=== PATIENT | female | born 2000 | race Caucasian/White ===

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

== ENCOUNTER → 2020-03-13 | Outpatient (REF) | payer OTHER ==
[~2020-03-13] MED LIST changes: +MAGICMW SSP
[2020-03-13 21:53] LABS: APPEARANCE, URINE HAZY (CLEAR); BACTERIA, URINE AUTO NEGATIVE (NEGATIVE); BILIRUBIN, URINE AUTO NEGATIVE (NEGATIVE); BLOOD, URINE BLOOD NEGATIVE (NEGATIVE); COLOR, URINE RED (YELLOW); GLUCOSE, URINE (UA) AUTO 1+ mg/dL (NEGATIVE); KETONE, URINE AUTO NEGATIVE (NEGATIVE); LEUKOCYTE ESTERASE, URINE AUTO NEGATIVE (NEGATIVE); MUCUS, URINE MODERATE (NEGATIVE); NITRITE, URINE AUTO POSITIVE (NEGATIVE); PROTEIN, URINE AUTO NEGATIVE (NEGATIVE); RBC, URINE AUTO 2 /HPF (0-3); SPECIFIC GRAVITY URINE AUTO 1.026 (1.002-1.035); SQUAMOUS EPITHELIAL CELL UR AU 22 /HPF (0-6); WBC, URINE AUTO 26 /HPF (0-3)
== END ==
LOC: M LAB REF 21:14
PROVIDERS: ATTEND Physician Assistant Medical
DX: R30.0 Dysuria (principal)

== ENCOUNTER → 2020-08-14 | Outpatient (REF) | payer OTHER ==
[2020-08-14 18:07] LABS: HCG, SERUM QUALITATIVE NEGATIVE (NEGATIVE)
[2020-08-14 18:11] LABS: HCG, SERUM QUANTITATIVE < 1.0 MIU/ML
== END ==
LOC: M LAB REF 16:47
PROVIDERS: ATTEND Physician Assistant Medical
DX: Z32.00 Encounter for pregnancy test, result unknown (principal)

== ENCOUNTER 2020-11-18 10:40 | Emergency (ER) | payer OTHER ==
[~2020-11-18] VITALS: Ht 175.3 cm; Wt 77.6 kg
[2020-11-18] MEDS ORDERED: MULTTAB20 PO (10:47)
[2020-11-18 11:38] LABS: BASO % 0.4 % (0.0-1.0); EOS # 0.1 10^3/uL (0.0-0.5); EOS % 0.8 % (0.0-3.0); HEMATOCRIT 40.5 % (36.0-47.0); LYMPH # 1.6 10^3/uL (1.5-5.0); LYMPH % 15.8 % (24.0-44.0); MEAN CORPUSCULAR HEMOGLOBIN 28.3 pg (27.0-33.0); MEAN CORPUSCULAR HGB CONC 32.1 g/dl (32.0-36.5); MONO # 0.9 10^3/uL (0.0-0.8); MONO % 9.1 % (0.0-5.0); NEUTROPHILS # 7.4 10^3/uL (1.5-8.5); NEUTROPHILS % 73.6 % (36.0-66.0); PLATELET COUNT, AUTOMATED 290 10^3/uL (150-450)
--- NOTE | 2020-11-18 12:03 | REP ---
INDICATION: vaginal bleeding, first trimester COMPARISON: None. TECHNIQUE: Transabdominal and transvaginal 1st trimester obstetrical ultrasound with color Doppler evaluation. FINDINGS: Anteverted uterus measures 8.0 x 4.1 x 5.1 cm. No intrauterine identified. Bilateral ovaries are normal in appearance and vascularity. Right ovary measures 2.7 x 1.2 x 1.4 cm (RI 0.59). Left ovary measures 2.7 x 1.9 x 1.9 cm (RI 0.45). No pelvic fluid or adnexal mass lesion. IMPRESSION: Normal uterus and ovaries. No intrauterine identified. Correlation with serial HCG levels recommended. Differential diagnosis includes recent spontaneous and early , and much less likely ectopic cannot be excluded. <Electronically signed by Ramin Escobar > 11/18/20 [id number]
[2020-11-18 12:47] VITALS: BP 135/83
[2020-11-18 14:12] LABS: CHLAMYDIA DNA AMPLIFICATION NEGATIVE (NEGATIVE); GC DNA AMPLIFICATION NEGATIVE (NEGATIVE)
== END 2020-11-18 12:48 | disposition home or self-care (01) ==
LOC: M ED 10:40
DX: O20.0 Threatened abortion (principal); Z79.899 Other long term (current) drug therapy

== ENCOUNTER → 2020-11-20 | Outpatient (CLI) | payer OTHER ==
[~2020-11-20] MED LIST changes: +MULTTAB20 PO
== END ==
LOC: M LAB 11:36
PROVIDERS: ATTEND Physician Assistant Medical
DX: O26.851 Spotting complicating pregnancy, first trimester (principal); Z3A.00 Weeks of gestation of pregnancy not specified

== ENCOUNTER → 2021-02-06 | Outpatient (REF) | payer OTHER ==
[2021-02-06 21:18] LABS: APPEARANCE, URINE CLOUDY (CLEAR); BACTERIA, URINE AUTO NEGATIVE (NEGATIVE); BILIRUBIN, URINE AUTO NEGATIVE (NEGATIVE); BLOOD, URINE BLOOD NEGATIVE (NEGATIVE); COLOR, URINE YELLOW (YELLOW); GLUCOSE, URINE (UA) AUTO NEGATIVE (NEGATIVE); KETONE, URINE AUTO NEGATIVE (NEGATIVE); LEUKOCYTE ESTERASE, URINE AUTO 1+ (NEGATIVE); MUCUS, URINE SMALL (NEGATIVE); NITRITE, URINE AUTO NEGATIVE (NEGATIVE); PROTEIN, URINE AUTO NEGATIVE (NEGATIVE); RBC, URINE AUTO 3 /HPF (0-3); SPECIFIC GRAVITY URINE AUTO 1.028 (1.002-1.035); SQUAMOUS EPITHELIAL CELL UR AU 5 /HPF (0-6); TRANSITIONAL EPITHELIAL AUTO <1 /HPF; UROBILINOGEN, URINE AUTO 0.2 mg/dL (0.0-2.0); WBC, URINE AUTO 21 /HPF (0-3)
== END ==
LOC: M LAB REF 21:07
PROVIDERS: ATTEND Physician Assistant
DX: N39.0 Urinary tract infection, site not specified (principal)

== ENCOUNTER → 2021-02-06 | Outpatient (REF) | payer OTHER | LOC: M PLALAB 16:43 | PROVIDERS: ATTEND Nurse Practitioner Family | DX: N92.6 Irregular menstruation, unspecified (principal) ==

== ENCOUNTER → 2021-02-08 | Outpatient (CLI) | payer OTHER | LOC: M LAB 16:40 | PROVIDERS: ATTEND Nurse Practitioner Family | DX: N92.6 Irregular menstruation, unspecified (principal) ==

== ENCOUNTER → 2021-03-07 | Outpatient (REF) | payer OTHER ==
[2021-03-07 15:42] LABS: HEMATOCRIT 40.9 % (36.0-47.0); HEMOGLOBIN 13.6 g/dl (12.0-15.5); MEAN CORPUSCULAR HEMOGLOBIN 29.6 pg (27.0-33.0); MEAN CORPUSCULAR HGB CONC 33.3 g/dl (32.0-36.5); MEAN CORPUSCULAR VOLUME 88.9 fl (80.0-96.0); PLATELET COUNT, AUTOMATED 341 10^3/uL (150-450); WHITE BLOOD COUNT 12.1 10^3/uL (4.0-10.0)
[2021-03-07 16:51] LABS: HEPATITIS C VIRUS ABY INDEX < 0.0 INDEX (<0.8); HIV 1&2 SCREEN CENTAUR NEGATIVE (NEGATIVE)
== END ==
LOC: M PLALAB 13:38
PROVIDERS: ATTEND Advanced Practice Midwife
DX: Z34.01 Encounter for supervision of normal first pregnancy, first trimester (principal)

== ENCOUNTER → 2021-03-15 | Outpatient (REF) | payer OTHER ==
[2021-03-15 20:02] LABS: APPEARANCE, URINE CLEAR (CLEAR); BACTERIA, URINE AUTO NEGATIVE (NEGATIVE); BILIRUBIN, URINE AUTO NEGATIVE (NEGATIVE); BLOOD, URINE BLOOD NEGATIVE (NEGATIVE); COLOR, URINE YELLOW (YELLOW); GLUCOSE, URINE (UA) AUTO NEGATIVE (NEGATIVE); KETONE, URINE AUTO NEGATIVE (NEGATIVE); LEUKOCYTE ESTERASE, URINE AUTO TRACE (NEGATIVE); MUCUS, URINE SMALL (NEGATIVE); NITRITE, URINE AUTO NEGATIVE (NEGATIVE); PROTEIN, URINE AUTO NEGATIVE (NEGATIVE); RBC, URINE AUTO 0 /HPF (0-3); SPECIFIC GRAVITY URINE AUTO 1.014 (1.002-1.035); SQUAMOUS EPITHELIAL CELL UR AU 1 /HPF (0-6); UROBILINOGEN, URINE AUTO 0.2 mg/dL (0.0-2.0); WBC, URINE AUTO 1 /HPF (0-3)
== END ==
LOC: M LAB REF 18:26
PROVIDERS: ATTEND Advanced Practice Midwife
DX: N39.0 Urinary tract infection, site not specified (principal)

== ENCOUNTER → 2021-04-02 | Outpatient (REF) | payer OTHER | LOC: M SFHCWAGY 14:54 | PROVIDERS: ATTEND Obstetrics & Gynecology | DX: R30.0 Dysuria (principal) ==

== ENCOUNTER 2021-04-17 10:52 | Day surgery (SDC) | payer OTHER ==
[~2021-04-17] VITALS: Ht 177.8 cm; Wt 70.7 kg
[~2021-04-17 10:52] MED LIST changes: +KETOROLAC 60MG 2ML VIAL As Ordered ONE; +LIDOCAINE 2% 100MG/5ML SDV (FOR ANES.) As Ordered ONE; +LR 1,000 ML IV ONE; +METOCLOPRAMIDE INJ 10MG/2ML VIAL (J2765 PER 1) As Ordered ONE; +MIDAZOLAM INJ 2MG/2ML VIAL (J2250 PER 1MG) As Ordered ONE; +ONDANSETRON 4MG/2ML VIAL As Ordered ONE; +dexameTHASONE 4 MG/ML 1ML VIAL (J1100 PER 1MG) As Ordered ONE; +fentaNYL 100 MCG/2 ML INJECTION (J3010) As Ordered ONE; +propofoL 200 MG/20 ML VIAL As Ordered ONE
[2021-04-17] MEDS ORDERED: LIDOCAINE 1% SDV 30ML VIAL As Ordered ONE (11:05)
[2021-04-17 11:31] LABS: HEMATOCRIT 43.7 % (36.0-47.0); HEMOGLOBIN 14.5 g/dl (12.0-15.5); MEAN CORPUSCULAR HEMOGLOBIN 29.5 pg (27.0-33.0); MEAN CORPUSCULAR HGB CONC 33.2 g/dl (32.0-36.5); MEAN CORPUSCULAR VOLUME 88.8 fl (80.0-96.0); PLATELET COUNT, AUTOMATED 295 10^3/uL (150-450); RED BLOOD COUNT 4.92 10^6/uL (4.00-5.40); WHITE BLOOD COUNT 10.2 10^3/uL (4.0-10.0)
[2021-04-17] MEDS ORDERED: propofoL 200 MG/20 ML VIAL As Ordered ONE (12:14)
[2021-04-17] MEDS ORDERED: ACETAMINOPHEN 1000MG 100ML IV BTL (OFIRMEV) (J0131 PER 10MG) As Ordered ONE (12:34)
[2021-04-17] MEDS ORDERED: METHYLERGONOVINE MALEATE 0.2 MG/ML VIAL (J2210) As Ordered ONE (12:40)
--- NOTE | 2021-04-17 13:00 | ROOPDOC ---
[facility] Report Of Operation Report of Operation DATE OF PROCEDURE: 04/17/21 PREPROCEDURE DIAGNOSES: missed , 11 weeks gestation. POSTPROCEDURE DIAGNOSES: same. PROCEDURE: D+E+C. SURGEON: Jeannine Kenney MD ANESTHESIA: general via LMA. ESTIMATED BLOOD LOSS: Approximately 300 mL. COMPLICATIONS: none. FINDINGS: Moderate amount of POC's, midline uterus. PROCEDURE NOTE: The patient was taken to the operating room where LMA anesthesia was induced. She was prepped and draped in a sterile fashion in the dorsal lithotomy position. The bladder was emptied with a catheter. A speculum was placed in the vagina. The anterior lip of the cervix was grasped with a tenaculum. Cervix was dilated with tapered dilators. A #10 millimeter suction curet was placed through the internal os. The suction device was activated and curette was gently rotated until products of conception were noted coming through the suction tubing. Sharp curettage performed. The uterine cavity was deemed to be empty. The patient was noted to have mild uterine atony with some excessive bleeding. Patient received Methergine 0.2 mg IM. She also received Cytotec 800 g per rectum. Uterine tone improved. Good hemostasis was noted. All instruments were removed. JEANNINE KENNEY MD April 17, 2021 13:00
[2021-04-17] MEDS ORDERED: oxyCODONE 5MG TAB PO PRN (13:10)
[2021-04-17] MEDS ORDERED: LR 1,000 ML IV SCH ×2 (13:10)
[2021-04-17] MEDS ORDERED: ACETAMINOPHEN 500 MG TAB PO ONE (13:10)
[2021-04-17] MEDS ORDERED: HYDROMORPHONE HCL 0.5 MG/ 0.5 ML SYRINGE (J1170 PER 1) IV PRN (13:10)
[2021-04-17] MEDS ORDERED: ONDANSETRON 4MG/2ML VIAL IV PRN (13:10)
[2021-04-17] MEDS ORDERED: fentaNYL 100 MCG/2 ML INJECTION (J3010) IV PRN (13:10)
[2021-04-17] MEDS ORDERED: DOXYCYCLINE HYCLATE 100MG TABLET PO ONE (13:15)
[2021-04-17 14:35] VITALS: BP 140/75
== END 2021-04-17 14:39 | disposition home or self-care (01) ==
LOC: M SDC 10:52
PROVIDERS: ATTEND Specialist
DX: O02.1 Missed abortion (principal)
CPT/HCPCS: 36415; 59820; 85027; 87798; 88233; 88262; 88291; 88305; J0131; J1100; J1885; J2210; J2250; J2405; J2765; J3010

== ENCOUNTER → 2021-05-07 | Outpatient (REF) | payer OTHER ==
[~2021-05-07] MED LIST changes: -KETOROLAC 60MG 2ML VIAL As Ordered ONE; -LIDOCAINE 2% 100MG/5ML SDV (FOR ANES.) As Ordered ONE; -LR 1,000 ML IV ONE; -METOCLOPRAMIDE INJ 10MG/2ML VIAL (J2765 PER 1) As Ordered ONE; -MIDAZOLAM INJ 2MG/2ML VIAL (J2250 PER 1MG) As Ordered ONE; -ONDANSETRON 4MG/2ML VIAL As Ordered ONE; -dexameTHASONE 4 MG/ML 1ML VIAL (J1100 PER 1MG) As Ordered ONE; -fentaNYL 100 MCG/2 ML INJECTION (J3010) As Ordered ONE; -propofoL 200 MG/20 ML VIAL As Ordered ONE
== END ==
LOC: M PLALAB 15:14
PROVIDERS: ATTEND Specialist
DX: N92.6 Irregular menstruation, unspecified (principal)

== ENCOUNTER 2021-06-29 21:01 | Emergency (ER) | payer OTHER ==
[~2021-06-29] VITALS: Ht 177.8 cm; Wt 72.6 kg
[2021-06-29] MEDS ORDERED: PROG1CAP9 VG (21:10)
[2021-06-29] MEDS ORDERED: PREN1CHW PO (21:10)
[2021-06-30 00:34] VITALS: BP 114/62
== END 2021-06-30 00:37 | disposition home or self-care (01) ==
LOC: M ED 21:01
DX: O26.91 Pregnancy related conditions, unspecified, first trimester (principal); Z3A.01 Less than 8 weeks gestation of pregnancy; R82.998 Other abnormal findings in urine

== ENCOUNTER → 2021-07-08 | Outpatient (CLI) | payer OTHER ==
[~2021-07-08] MED LIST changes: +PREN1CHW PO; +PROG1CAP9 VG
== END ==
LOC: M RAD 14:06
PROVIDERS: ATTEND Obstetrics & Gynecology
DX: O36.80X0 Pregnancy with inconclusive fetal viability, not applicable or unspecified (principal)

== ENCOUNTER → 2021-07-18 | Outpatient (CLI) | payer OTHER ==
[2021-07-18 14:36] LABS: BASO % 0.4 % (0.0-1.0); EOS # 0.1 10^3/uL (0.0-0.5); EOS % 0.6 % (0.0-3.0); HEMATOCRIT 40.6 % (36.0-47.0); LYMPH # 1.6 10^3/uL (1.5-5.0); LYMPH % 18.2 % (24.0-44.0); MEAN CORPUSCULAR HEMOGLOBIN 28.8 pg (27.0-33.0); MONO # 0.7 10^3/uL (0.0-0.8); MONO % 8.7 % (2.0-8.0); NEUTROPHILS # 6.1 10^3/uL (1.5-8.5); NEUTROPHILS % 71.7 % (36.0-66.0); PLATELET COUNT, AUTOMATED 301 10^3/uL (150-450); RED BLOOD COUNT 4.51 10^6/uL (4.00-5.40); WHITE BLOOD COUNT 8.5 10^3/uL (4.0-10.0)
[2021-07-18 15:22] LABS: HEPATITIS C VIRUS ABY INDEX < 0.0 INDEX (<0.8); HIV 1&2 SCREEN CENTAUR NEGATIVE (NEGATIVE)
[2021-07-18 16:11] LABS: GC DNA AMPLIFICATION NEGATIVE (NEGATIVE)
== END ==
LOC: M PLALAB 09:09
PROVIDERS: ATTEND Nurse Practitioner Family
DX: Z34.01 Encounter for supervision of normal first pregnancy, first trimester (principal)

== ENCOUNTER → 2021-08-01 | Outpatient (CLI) | payer OTHER | LOC: M PLALAB 08:44 | PROVIDERS: ATTEND Advanced Practice Midwife | DX: Z34.81 Encounter for supervision of other normal pregnancy, first trimester (principal); Z3A.00 Weeks of gestation of pregnancy not specified; Z53.9 Procedure and treatment not carried out, unspecified reason ==

== ENCOUNTER → 2021-09-11 | Outpatient (REF) | payer OTHER | LOC: M SFHCWAGY 10:11 | PROVIDERS: ATTEND Advanced Practice Midwife | DX: O26.899 Other specified pregnancy related conditions, unspecified trimester (principal); Z3A.00 Weeks of gestation of pregnancy not specified ==

== ENCOUNTER → 2021-09-25 | Outpatient (CLI) | payer OTHER ==
--- NOTE | 2021-09-25 11:36 | REP ---
INDICATION: ANATOMY. COMPARISON: 07/08/2021. TECHNIQUE: Real-time sonographic evaluation of the gravid uterus performed. FINDINGS: Estimated gestational age is19 weeks 0 days, EDC 02/19/2022. Today's measurements indicate appropriate growth. Presentation: Variable Placenta posterior and fundal, grade 1, without evidence of placenta previa. heart rate is recorded at 150 beats per minute. Amniotic fluid is subjectively normal. Closed cervical length is measured at 3.6 cm. Biometry chart: BPD: 46 mm, 19 weeks 5 days, 71st percentile. HC: 165 mm, 19 weeks 1 days, 55th percentile AC: 135 mm, 18 weeks 6 days, 48th percentile Femur length: 29 mm, 19 weeks 0 days, 51st percentile HC to AC ratio: 1.22, normal range 1.06-1.25. Estimated weight: 270g, 47th percentile. anatomy: Cranium: Grossly normal Lateral Ventricles/Choroid Plexus: Grossly normal Posterior Fossa/Cerebellum: Grossly normal Nose/lips/profile: Grossly normal Four chamber heart: Grossly normal Right ventricular outflow tract: Grossly normal Left ventricular outflow tract: Grossly normal Left-sided stomach: Grossly normal Kidneys: Grossly normal Bladder: Grossly normal Cord Insertion: Grossly normal 3 vessel cord: Grossly normal Spine: Grossly normal IMPRESSION: Viable single intrauterine gestation as above. <Electronically signed by Duke Calles > 09/25/21 [id number]
== END ==
LOC: M WHC 08:25
PROVIDERS: ATTEND Obstetrics & Gynecology
DX: Z36.9 Encounter for antenatal screening, unspecified (principal); Z3A.19 19 weeks gestation of pregnancy

== ENCOUNTER → 2021-10-16 | Outpatient (REF) | payer OTHER | LOC: M SFHCWAGY 13:02 | PROVIDERS: ATTEND Obstetrics & Gynecology | DX: O23.40 Unspecified infection of urinary tract in pregnancy, unspecified trimester (principal); Z3A.00 Weeks of gestation of pregnancy not specified ==

== ENCOUNTER 2021-10-28 06:30 | Outpatient (RCR) | END 2021-10-28 15:00 | disposition home or self-care (01) | LOC: M EMP 06:30 | PROVIDERS: ATTEND Pediatrics | DX: Z11.52 Encounter for screening for COVID-19 (principal) ==

== ENCOUNTER → 2021-11-25 | Outpatient (CLI) | payer OTHER ==
[2021-11-25 13:46] LABS: HEMATOCRIT 35.9 % (36.0-47.0); HEMOGLOBIN 11.6 g/dl (12.0-15.5); MEAN CORPUSCULAR HEMOGLOBIN 29.9 pg (27.0-33.0); MEAN CORPUSCULAR HGB CONC 32.3 g/dl (32.0-36.5); MEAN CORPUSCULAR VOLUME 92.5 fl (80.0-96.0); PLATELET COUNT, AUTOMATED 279 10^3/uL (150-450); RED BLOOD COUNT 3.88 10^6/uL (4.00-5.40); WHITE BLOOD COUNT 14.9 10^3/uL (4.0-10.0)
[2021-11-25 15:08] LABS: GC DNA AMPLIFICATION NEGATIVE (NEGATIVE)
== END ==
LOC: M PLALAB 08:30
PROVIDERS: ATTEND Obstetrics & Gynecology
DX: O23.40 Unspecified infection of urinary tract in pregnancy, unspecified trimester (principal)

== ENCOUNTER → 2021-12-16 | Outpatient (REF) | payer OTHER | LOC: M SFHCWAGY 12:53 | PROVIDERS: ATTEND Advanced Practice Midwife | DX: Z34.83 Encounter for supervision of other normal pregnancy, third trimester (principal) ==

== ENCOUNTER → 2022-01-23 | Outpatient (REF) | payer OTHER | LOC: M PLALAB 14:33 | PROVIDERS: ATTEND Specialist | DX: Z53.9 Procedure and treatment not carried out, unspecified reason (principal) ==

== ENCOUNTER → 2022-01-24 | Outpatient (REF) | payer OTHER | LOC: M SFHCWAGY 12:52 | PROVIDERS: ATTEND Specialist | DX: Z34.03 Encounter for supervision of normal first pregnancy, third trimester (principal) ==

== ENCOUNTER → 2022-02-10 | Outpatient (CLI) | payer OTHER | LOC: M LABSMTC 09:10 | PROVIDERS: ATTEND Anesthesiology | DX: Z01.812 Encounter for preprocedural laboratory examination (principal); Z20.822 Contact with and (suspected) exposure to COVID-19 ==

== ENCOUNTER 2022-02-14 07:06 | Inpatient (IN) | payer OTHER ==
[~2022-02-14] VITALS: Ht 177.8 cm; Wt 77.0 kg
[2022-02-14] VITALS (7 sets, daily range): BP systolic 108–131; BP diastolic 58–83
[2022-02-14] MEDS ORDERED: TUMS500C PO (07:28)
[2022-02-14] MEDS ORDERED: HOME MED LIST COMPLETE! XX SCH (07:30)
[2022-02-14] MEDS ORDERED: LR 1,000 ML IV SCH (08:05)
[2022-02-14] MEDS ORDERED: BICITRA 30ML SOLN UDC PO ONE (08:05)
[2022-02-14] MEDS ORDERED: LR 800 ML IV ONE (08:05)
[2022-02-14] MEDS ORDERED: ceFAZolin SOD 2 GM in IV 1 EA IV ONE (08:05)
[2022-02-14 08:20] LABS: HEMATOCRIT 34.9 % (36.0-47.0); HEMOGLOBIN 11.2 g/dl (12.0-15.5); MEAN CORPUSCULAR HEMOGLOBIN 27.9 pg (27.0-33.0); MEAN CORPUSCULAR HGB CONC 32.1 g/dl (32.0-36.5); PLATELET COUNT, AUTOMATED 315 10^3/uL (150-450); RED BLOOD COUNT 4.01 10^6/uL (4.00-5.40)
[2022-02-14] MEDS: PRENATAL VITAMINS CHEWABLE TABLET PO SCH (09:00)
[2022-02-14] MEDS ORDERED: OXYTOCIN DRIP 30 UNITS in IV 1 EA IV SCH (10:40)
[2022-02-14] MEDS ORDERED: ONDANSETRON 4MG/2ML VIAL IV PRN ×3 (10:40→11:40)
[2022-02-14] MEDS ORDERED: DOCUSATE SODIUM 100MG CAPSULE PO PRN (10:40)
[2022-02-14] MEDS ORDERED: SIMETHICONE 80MG CHEW TAB PO PRN (10:40)
[2022-02-14] MEDS ORDERED: MEASLES,MUMPS,RUBELLA VACCINE INJ (MMR-II) (90707) SC SCH (10:40)
[2022-02-14] MEDS ORDERED: PERCOCET 5MG/325MG TAB PO PRN (10:40)
[2022-02-14] MEDS ORDERED: RHOGAM 300 MCG (1500 IU) INJ (J2790) IM SCH (10:40)
[2022-02-14] MEDS ORDERED: NALOXONE INJ 0.4MG/1ML VIAL (J2310 PER 1MG) IV PRN ×2 (10:41)
[2022-02-14] MEDS ORDERED: diphenhydrAMINE 50MG/ML VIAL (J1200) IV PRN (10:41)
[2022-02-14] MEDS ORDERED: NALBUPHINE HCL 10 MG/ML AMP (J2300) IV PRN (10:41)
[2022-02-14] MEDS ORDERED: METOCLOPRAMIDE INJ 10MG/2ML VIAL (J2765 PER 1) IV PRN (10:41)
[2022-02-14] MEDS ORDERED: ONDANSETRON 4MG/2ML VIAL As Ordered ONE (10:45)
[2022-02-14] MEDS ORDERED: MORPHINE PRES-FREE INJ 10 MG/10 ML VIAL (J2274) As Ordered ONE (10:45)
[2022-02-14] MEDS ORDERED: KETOROLAC 60MG 2ML VIAL As Ordered ONE (10:45)
[2022-02-14] MEDS ORDERED: ACETAMINOPHEN 1000MG 100ML IV BTL (OFIRMEV) (J0131 PER 10MG) As Ordered ONE (10:45)
[2022-02-14] MEDS ORDERED: PHENYLephrine 500MCG 5ML (100MCG/ML) SYRINGE As Ordered ONE (10:50)
[2022-02-14] MEDS ORDERED: OXYTOCIN 30 UNITS IN 0.9% NaCl 500ML IV BAG (J2590) As Ordered ONE ×2 (10:53→11:24)
[2022-02-14] MEDS ORDERED: fentaNYL 100 MCG/2 ML INJECTION IV PRN (11:40)
[2022-02-14] MEDS ORDERED: oxyCODONE 5MG TAB PO PRN (11:40)
[2022-02-14] MEDS ORDERED: ePHEDrine SULFATE 25 MG/5 ML(5MG/ML) SYRINGE IV PRN (11:40)
[2022-02-14] MEDS ORDERED: HYDROMORPHONE HCL 0.5 MG/ 0.5 ML SYRINGE (J1170 PER 1) IV PRN (11:40)
[2022-02-14] MEDS: LR 1,000 ML IV SCH ×2 (11:58→18:40)
[2022-02-14] MEDS ORDERED: oxyCODONE 5MG TAB As Ordered ONE (12:50)
[2022-02-14] MEDS: KETOROLAC 30 MG/ML 1ML VIAL IV SCH ×2 (16:27→22:58)
[2022-02-15 02:29] VITALS: BP 141/67
[2022-02-15] MEDS: LR 1,000 ML IV SCH ×2 (02:40→10:40)
[2022-02-15] MEDS: KETOROLAC 30 MG/ML 1ML VIAL IV SCH (04:24)
[2022-02-15 06:12] VITALS: BP 115/59
[2022-02-15 06:50] LABS: HEMATOCRIT 28.6 % (36.0-47.0); HEMOGLOBIN 8.9 g/dl (12.0-15.5); MEAN CORPUSCULAR HEMOGLOBIN 27.6 pg (27.0-33.0); MEAN CORPUSCULAR HGB CONC 31.1 g/dl (32.0-36.5); MEAN CORPUSCULAR VOLUME 88.8 fl (80.0-96.0); PLATELET COUNT, AUTOMATED 236 10^3/uL (150-450); RED BLOOD COUNT 3.22 10^6/uL (4.00-5.40)
[2022-02-15] MEDS: PRENATAL VITAMINS CHEWABLE TABLET PO SCH (08:31)
[2022-02-15 10:00] VITALS: BP 121/73
[2022-02-15] MEDS: PERCOCET 5MG/325MG TAB PO PRN (10:10)
[2022-02-15] MEDS: IBUPROFEN 800 MG TAB PO SCH ×2 (13:44→20:05)
[2022-02-15 14:00] VITALS: BP 147/80
[2022-02-15 18:00] VITALS: BP 123/69
[2022-02-15 22:00] VITALS: BP 134/64
[2022-02-16 02:00] VITALS: BP 129/67
[2022-02-16] MEDS: IBUPROFEN 800 MG TAB PO SCH ×2 (04:07→12:10)
[2022-02-16 05:53] VITALS: BP 133/76
[2022-02-16] MEDS ORDERED: IBUP80TA PO (08:34)
[2022-02-16] MEDS ORDERED: OXYC1TAB23 PO (08:34)
[2022-02-16] MEDS: PRENATAL VITAMINS CHEWABLE TABLET PO SCH (09:44)
[2022-02-16] MEDS: PERCOCET 5MG/325MG TAB PO PRN (09:45)
== END 2022-02-16 12:15 | disposition home or self-care (01) | DRG 540 ==
LOC: M LDI 07:06 → M OBS 13:19
PROVIDERS: ADMIT Specialist; ATTEND Specialist
PROC: 10D00Z1 Extraction of Products of Conception, Low, Open Approach (ICD-10-PCS; principal; 2022-02-14 09:30)
DX: O32.1XX0 Maternal care for breech presentation, not applicable or unspecified (principal); Z37.0 Single live birth; Z3A.39 39 weeks gestation of pregnancy

== ENCOUNTER → 2022-03-12 | Outpatient (REF) | payer OTHER ==
[~2022-03-12] MED LIST changes: +IBUP80TA PO; +OXYC1TAB23 PO; +TUMS500C PO
== END ==
LOC: M LAB REF 14:22
PROVIDERS: ATTEND Physician Assistant
DX: R05.9 Cough, unspecified (principal)

== ENCOUNTER 2023-10-18 18:03 | Emergency (ER) | payer OTHER ==
[~2023-10-18] VITALS: Ht 177.8 cm; Wt 62.5 kg
[2023-10-18] MEDS ORDERED: prenatal vitamin (18:41)
[2023-10-18 20:17] LABS: BASO % 0.4 % (0.0-1.0); EOS # 0.2 10^3/uL (0.0-0.5); EOS % 2.5 % (0.0-3.0); HEMATOCRIT 40.2 % (36.0-47.0); HEMOGLOBIN 13.6 g/dl (12.0-15.5); LYMPH # 1.2 10^3/uL (1.5-5.0); LYMPH % 16.6 % (24.0-44.0); MEAN CORPUSCULAR HEMOGLOBIN 30.3 pg (27.0-33.0); MEAN CORPUSCULAR HGB CONC 33.8 g/dl (32.0-36.5); MEAN CORPUSCULAR VOLUME 89.5 fl (80.0-96.0); MONO # 1.1 10^3/uL (0.0-0.8); MONO % 15.1 % (2.0-8.0); NEUTROPHILS # 4.8 10^3/uL (1.5-8.5); NEUTROPHILS % 65.3 % (36.0-66.0); PLATELET COUNT, AUTOMATED 282 10^3/uL (150-450); RED BLOOD COUNT 4.49 10^6/uL (4.00-5.40); WHITE BLOOD COUNT 7.3 10^3/uL (4.0-10.0)
[2023-10-18 20:36] LABS: BLOOD UREA NITROGEN 11 MG/DL (9-23); CALCIUM LEVEL 9.2 MG/DL (8.5-10.1); CARBON DIOXIDE LEVEL 27 MMOL/L (20-31); CHLORIDE LEVEL 100 MMOL/L (98-107); CREATININE FOR GFR 0.51 MG/DL (0.55-1.30); GLOMERULAR FILTRATION RATE > 60.0 (>60); GLUCOSE, FASTING 97 MG/DL (60-100); SODIUM LEVEL 135 MMOL/L (136-145)
[2023-10-18 21:15] VITALS: BP 134/77; TEMP 98.3; O2SAT 99
[2023-10-18 23:04] LABS: CHLAMYDIA DNA AMPLIFICATION NEGATIVE (NEGATIVE); GC DNA AMPLIFICATION NEGATIVE (NEGATIVE)
== END 2023-10-19 00:30 | disposition home or self-care (01) ==
LOC: M ED 18:03
DX: O20.0 Threatened abortion (principal)

== ENCOUNTER → 2023-11-13 | Outpatient (CLI) | payer OTHER ==
[~2023-11-13] MED LIST changes: +prenatal vitamin
[2023-11-13 17:51] LABS: HEMATOCRIT 36.9 % (36.0-47.0); HEMOGLOBIN 12.2 g/dl (12.0-15.5); MEAN CORPUSCULAR HEMOGLOBIN 29.9 pg (27.0-33.0); MEAN CORPUSCULAR HGB CONC 33.1 g/dl (32.0-36.5); MEAN CORPUSCULAR VOLUME 90.4 fl (80.0-96.0); PLATELET COUNT, AUTOMATED 285 10^3/uL (150-450); RED BLOOD COUNT 4.08 10^6/uL (4.00-5.40); WHITE BLOOD COUNT 8.7 10^3/uL (4.0-10.0)
[2023-11-13 18:47] LABS: HIV 1&2 SCREEN NEGATIVE (NEGATIVE)
[2023-11-13 18:55] LABS: HEPATITIS C VIRUS ABY INDEX 0.06 INDEX (<0.8)
== END ==
LOC: M PLALAB 14:47
PROVIDERS: ATTEND Advanced Practice Midwife
DX: Z34.91 Encounter for supervision of normal pregnancy, unspecified, first trimester (principal); Z3A.00 Weeks of gestation of pregnancy not specified

== ENCOUNTER → 2023-12-18 | Outpatient (REF) | payer OTHER | LOC: M PLALAB 09:27 | PROVIDERS: ATTEND Advanced Practice Midwife | DX: Z34.92 Encounter for supervision of normal pregnancy, unspecified, second trimester (principal) ==

== ENCOUNTER → 2024-01-08 | Outpatient (CLI) | payer OTHER | LOC: M WHC 14:06 | PROVIDERS: ATTEND Advanced Practice Midwife | DX: Z34.92 Encounter for supervision of normal pregnancy, unspecified, second trimester (principal) ==

== ENCOUNTER → 2024-03-25 | Outpatient (CLI) | payer OTHER ==
[2024-03-25 15:18] LABS: HEMATOCRIT 34.5 % (36.0-47.0); HEMOGLOBIN 11.1 g/dl (12.0-15.5); MEAN CORPUSCULAR HEMOGLOBIN 29.7 pg (27.0-33.0); MEAN CORPUSCULAR HGB CONC 32.2 g/dl (32.0-36.5); MEAN CORPUSCULAR VOLUME 92.2 fl (80.0-96.0); PLATELET COUNT, AUTOMATED 253 10^3/uL (150-450); RED BLOOD COUNT 3.74 10^6/uL (4.00-5.40); WHITE BLOOD COUNT 11.8 10^3/uL (4.0-10.0)
[2024-03-25 16:47] LABS: GC DNA AMPLIFICATION NEGATIVE (NEGATIVE)
== END ==
LOC: M PLALAB 11:52
PROVIDERS: ATTEND Advanced Practice Midwife
DX: Z34.92 Encounter for supervision of normal pregnancy, unspecified, second trimester (principal)

== ENCOUNTER → 2024-05-06 | Outpatient (REF) | payer OTHER | LOC: M SFHCWAGY 12:39 | PROVIDERS: ATTEND Advanced Practice Midwife | DX: Z34.93 Encounter for supervision of normal pregnancy, unspecified, third trimester (principal) ==

== ENCOUNTER 2024-05-26 12:26 | Inpatient (IN) | payer OTHER ==
[2024-05-26] VITALS (12 sets, daily range): BP systolic 113–130; BP diastolic 56–77; O2SAT 98
[~2024-05-26] VITALS: Ht 180.3 cm; Wt 76.1 kg
[2024-05-26] MEDS ORDERED: PRENTAB9 PO (12:47)
[2024-05-26] MEDS ORDERED: CARBOPROST TROMETHAMINE 250 MCG/ML AMP IM PRN (15:05)
[2024-05-26] MEDS ORDERED: LR 1,000 ML IV SCH (15:05)
[2024-05-26] MEDS ORDERED: TRANEXAMIC ACID INJection 1,000 MG in NS 100 ML IV PRN (15:05)
[2024-05-26 16:10] LABS: HEMATOCRIT 36.3 % (36.0-47.0); HEMOGLOBIN 11.3 g/dl (12.0-15.5); MEAN CORPUSCULAR HEMOGLOBIN 27.5 pg (27.0-33.0); MEAN CORPUSCULAR HGB CONC 31.1 g/dl (32.0-36.5); MEAN CORPUSCULAR VOLUME 88.3 fl (80.0-96.0); PLATELET COUNT, AUTOMATED 258 10^3/uL (150-450); RED BLOOD COUNT 4.11 10^6/uL (4.00-5.40); WHITE BLOOD COUNT 17.2 10^3/uL (4.0-10.0)
[2024-05-26 17:03] LABS: HEPATITIS C VIRUS ABY INDEX < 0.02 INDEX (<0.8)
[2024-05-26] MEDS: LIDOCAINE 1% MDV 20ML VIAL INFIL PRN (21:50)
[2024-05-26] MEDS: OXYTOCIN DRIP 30 UNITS in IV 1 EA IV PRN (21:50)
[2024-05-26] MEDS ORDERED: METHYLERGONOVINE MALEATE 0.2 MG TAB PO PRN (22:40)
[2024-05-26] MEDS ORDERED: OXYTOCIN DRIP 30 UNITS in IV 1 EA IV SCH (22:40)
[2024-05-26] MEDS ORDERED: ACETAMINOPHEN TAB 650MG DOSE (2X325MG) PO PRN (22:40)
[2024-05-26] MEDS ORDERED: RHO(D) IMMUNE GLOBULIN/MALTOSE 500MCG(2500IU)/2.2ML VIAL (WINRHO) IM SCH (22:40)
[2024-05-26] MEDS ORDERED: ANUSOL HC CREAM 30GM TOP PRN (22:40)
[2024-05-26] MEDS ORDERED: MOM 30ML SUSPENSION UDC PO PRN (22:40)
[2024-05-26] MEDS ORDERED: CALCIUM CARBONATE 500 MG CHEW U/D PO PRN (22:40)
[2024-05-26] MEDS: IBUPROFEN 600MG TAB PO PRN (22:49)
[2024-05-26] MEDS ORDERED: OXYTOCIN 30UNITS IN 0.9% NaCl 500ML IV BAG As Ordered ONE (23:15)
[2024-05-26] MEDS: METHYLERGONOVINE MALEATE 0.2MG/ML 1ML VIAL IM PRN (23:20)
[2024-05-26] MEDS: OXYTOCIN DRIP 30 UNITS in IV 1 EA IV ONE (23:22)
[2024-05-27 00:19] VITALS: BP 133/63; O2SAT 98
[2024-05-27] MEDS: ACETAMINOPHEN 500 MG TAB PO PRN (00:36)
[2024-05-27] MEDS: DIBUCAINE 1% OINTMENT 30GM TOP PRN (00:46)
[2024-05-27 06:00] VITALS: BP 109/55; O2SAT 97
[2024-05-27] MEDS: DOCUSATE SODIUM 100MG CAPSULE PO SCH (08:10)
[2024-05-27] MEDS: PRENATAL VITAMINS CHEWABLE TABLET PO SCH (08:10)
[2024-05-27] MEDS: IBUPROFEN 800 MG TAB PO PRN (16:25)
[2024-05-27 18:38] VITALS: BP 129/74; O2SAT 98
[2024-05-28 05:51] VITALS: BP 116/67; O2SAT 99
[2024-05-28] MEDS: MEASLES,MUMPS,RUBELLA VACCINE INJ (MMR-II) SC.IMMUN ONE (14:00)
== END 2024-05-28 14:15 | disposition home or self-care (01) | DRG 560 ==
LOC: M LDO 12:26 → M LDI 14:53 → M OBS 05-27 00:11
PROVIDERS: ADMIT Obstetrics & Gynecology; ATTEND Obstetrics & Gynecology
PROC: 10E0XZZ Delivery of Products of Conception, External Approach (ICD-10-PCS; principal; 2024-05-26)
PROC: 0HQ9XZZ Repair Perineum Skin, External Approach (ICD-10-PCS; 2024-05-26)
DX: O34.211 Maternal care for low transverse scar from previous cesarean delivery (principal); Z37.0 Single live birth; Z3A.39 39 weeks gestation of pregnancy; O69.82X0 Labor and delivery complicated by other cord entanglement, without compression, not applicable or unspecified; O70.0 First degree perineal laceration during delivery